=== PATIENT | female | born 1950 | race Caucasian/White ===

== ENCOUNTER 2024-08-07 08:21 | Emergency (ER) | payer OTHER ==
[2024-08-07 08:32] VITALS: BMI 31.3
[2024-08-07] MEDS: ACETAMINOPHEN 500 MG TABLET (FP) PO ONE (10:17)
[2024-08-07 14:24] VITALS: BP 139/74; PULSE 59; RESP 18; TEMP 98.1
== END 2024-08-07 15:24 | disposition home or self-care (01) ==
LOC: JER 08:21
DX: M25.571 Pain in right ankle and joints of right foot (principal); M25.471 Effusion, right ankle
CPT/HCPCS: 73610-TC-RT-FY; 93971-TC; 99284-25